=== PATIENT | female | born 1935 | race Caucasian/White ===

== ENCOUNTER 2023-05-24 07:49 | Outpatient (CLI) | payer OTHER | END 2023-05-24 07:50 | disposition home or self-care (01) | LOC: ULT 07:49 | PROVIDERS: ATTEND Family Medicine | DX: N32.81 Overactive bladder (principal); K76.0 Fatty (change of) liver, not elsewhere classified | CPT/HCPCS: 76700; 76856 ==

== ENCOUNTER 2023-12-01 19:02 | Inpatient (IN) | payer MEDICARE ==
[2023-12-01] MEDS ORDERED: Acetaminophen 325 MG TAB ONE (19:20)
[2023-12-01] MEDS ORDERED: Ondansetron ODT 4 MG TAB ONE (19:48)
[2023-12-01] MEDS ORDERED: Ondansetron PF 4 MG/2 ML Vial ONE ×2 (20:28→21:57)
[2023-12-01 21:31] LABS: #Eosinphils 0.2 thou/uL (0.0-0.7); #Monocytes 0.8 thou/uL (0.11-0.59); #Neutrophils 10.3 thou/uL (1.40-6.50); %Basophils 0.2 % (0.0-1.0); %Eosinophils 1.7 % (0.0-10.0); %Lymphocytes 8.1 % (21.0-51.0); %Monocytes 6.1 % (0.0-10.0); %Neutrophils 83.3 % (42.0-75.0); Hematocrit 36.5 % (36.0-47.0); Hemoglobin 11.8 g/dL (12.0-16.0); Mean Corpuscular HGB CONC 32.3 g/dL (32.0-36.0); Mean Corpuscular Hemoglobin 31.9 pg (27.0-31.0); Mean Corpuscular Volume 98.6 fl (78.0-98.0); Mean Platelet Volume 10.5 fL (7.4-10.4); Platelet Count 134 10x3/uL (130-400); RBC Distribution Width 14.5 % (11.5-14.5); White Blood Cell (WBC) Count 12.4 10x3/uL (4.8-10.8)
[2023-12-01 21:50] LABS: ALT (SGPT) 22 U/L (8-55); AST (SGOT) 29 U/L (5-34); Albumin 4.3 g/dL (3.4-4.8); Alkaline Phosphatase 82 U/L (40-110); Anion Gap 15 mmol/L (10-20); BUN (Urea Nitrogen) 27 mg/dL (9.8-20.1); Bilirubin, Total 0.5 mg/dL (0.2-1.2); Calc. Creatinine Clearance 0 mL/min (70-130); Calcium 9.4 mg/dL (7.8-10.44); Carbon Dioxide 24 mmol/L (23-31); Chloride 102 mmol/L (98-107); Estimated GFR 39; Globulin 2.8 g/dL (2.4-3.5); Glucose 150 mg/dL (83-110); Potassium 4.4 mmol/L (3.5-5.1); Protein, Total 7.1 g/dL (5.8-8.1); Sodium 137 mmol/L (136-145)
[2023-12-01 21:54] LABS: Troponin I 0.015 ng/mL (< 0.028)
[2023-12-01] MEDS ORDERED: Ketorolac Tromethamine 30 MG (1 mL) VIAL ONE (21:57)
[2023-12-01] MEDS ORDERED: Morphine 2 MG/ML VIAL ONE (21:59)
[2023-12-01] MEDS ORDERED: Senokot S 8.6-50 MG TAB PO PRN (22:15)
[2023-12-01] MEDS ORDERED: Ondansetron PF 4 MG/2 ML Vial IVP PRN (22:19)
[2023-12-01] MEDS ORDERED: Morphine 2 MG/ML VIAL SLOW IVP PRN (23:11)
[2023-12-02 00:20] LABS: Influenza A by NAA Not Detected (NotDetected); Influenza B by NAA Not Detected (NotDetected); SARS-CoV-2 NAA Rapid Test Not Detected (NotDetected)
[2023-12-02] MEDS: QUEtiapine 25 MG TAB PO SCH ×2 (00:27→20:03)
[2023-12-02] MEDS: Simvastatin 10 MG TAB PO SCH ×2 (00:28→20:02)
[2023-12-02] MEDS: Ondansetron PF 4 MG/2 ML Vial IVP SCH (00:38)
[2023-12-02 01:20] VITALS: BMI 13.5
[2023-12-02] MEDS: HYDROcodone/Acetaminophen 10/325 mg Tablet PO PRN (04:24)
[2023-12-02] MEDS: Ondansetron PF 4 MG/2 ML Vial IVP PRN (04:30)
[2023-12-02 05:27] LABS: #Monocytes 0.6 thou/uL (0.11-0.59); #Neutrophils 9.5 thou/uL (1.40-6.50); %Basophils 0.1 % (0.0-1.0); %Eosinophils 0.1 % (0.0-10.0); %Neutrophils 87.4 % (42.0-75.0); Hematocrit 33.1 % (36.0-47.0); Hemoglobin 10.9 g/dL (12.0-16.0); Mean Corpuscular HGB CONC 32.9 g/dL (32.0-36.0); Mean Corpuscular Hemoglobin 32.1 pg (27.0-31.0); Mean Corpuscular Volume 97.4 fl (78.0-98.0); Mean Platelet Volume 10.8 fL (7.4-10.4); RBC Distribution Width 14.5 % (11.5-14.5); White Blood Cell (WBC) Count 10.9 10x3/uL (4.8-10.8)
[2023-12-02 05:58] LABS: Anion Gap 14 mmol/L (10-20); BUN (Urea Nitrogen) 28 mg/dL (9.8-20.1); Calc. Creatinine Clearance 20 mL/min (70-130); Calcium 9.3 mg/dL (7.8-10.44); Carbon Dioxide 23 mmol/L (23-31); Chloride 103 mmol/L (98-107); Estimated GFR 43; Glucose 198 mg/dL (83-110); Potassium 4.4 mmol/L (3.5-5.1); Sodium 136 mmol/L (136-145)
[2023-12-02 06:01] LABS: Platelet Count 119 10x3/uL (130-400)
[2023-12-02 07:43] LABS: Bacteria/HPF None Seen HPF (None Seen); Bilirubin Negative (Negative); Blood, Urine Negative (Negative); Clarity Clear (Clear); Glucose, Urine (Dipstick) Normal (Negative); Ketone, Urine Trace mg/dL (Negative); Leukocyte Negative Leu/uL (Negative); Nitrite Negative (Negative); Protein, Urine (Dipstick) 50 mg/dL (Neg-Trace); Specific Gravity, Urine 1.035 (1.002-1.036); Urobilinogen Normal mg/dL (Less than 2); pH, Urine 5.5 (5.0-9.0)
[2023-12-02] MEDS: Aspirin 81 mg Enteric Coated Tablet PO SCH (08:50)
[2023-12-02] MEDS: Furosemide 40 MG TAB PO SCH (08:50)
[2023-12-02] MEDS: Calcium Carbonate 500 MG ChewTAB PO SCH (08:50)
[2023-12-02] MEDS: FLU VACC QS2023(65UP)/MF59C/PF 60 MCG/0.5 ML SYRINGE IM ONE (08:51)
[2023-12-02] MEDS: Furosemide 40 MG (4 mL) VIAL SLOW IVP SCH ×2 (09:09→16:39)
[2023-12-02] MEDS: Ipratropium/Albuterol 3 ML NEB NEB SCH (10:52)
[2023-12-02] MEDS: Ipratropium/Albuterol 3 ML NEB NEB PRN (20:11)
[2023-12-03 06:05] LABS: Hematocrit 33.6 % (36.0-47.0); Hemoglobin 11.2 g/dL (12.0-16.0); Manual Diff?? YES; Mean Corpuscular HGB CONC 33.3 g/dL (32.0-36.0); Mean Corpuscular Hemoglobin 32.5 pg (27.0-31.0); Mean Corpuscular Volume 97.4 fl (78.0-98.0); Mean Platelet Volume 11.6 fL (7.4-10.4); Platelet Count 115 10x3/uL (130-400); Red Blood Cell (RBC) Count 3.45 mill/uL (4.20-5.40); White Blood Cell (WBC) Count 17.9 10x3/uL (4.8-10.8)
[2023-12-03 06:07] LABS: Delete Auto Diff?? YES
[2023-12-03 06:35] LABS: Band 18 % (5-11); CellaVision Operator ID lab.abc; Lymphocytes 11 % (21-51); Monocytes 9 % (0-10); Neutrophil 62 % (42-75); Platelet Adequacy Comment Platelets Decreased; RBC Morphology Within Normal Limits; Smudge Cells 14.9 %; Total Cell Count 101
[2023-12-03 06:45] LABS: Anion Gap 16 mmol/L (10-20); BUN (Urea Nitrogen) 36 mg/dL (9.8-20.1); CRP (Inflammatory) 13.47 mg/dL (= or < 0.5); Calc. Creatinine Clearance 17 mL/min (70-130); Calcium 9.5 mg/dL (7.8-10.44); Carbon Dioxide 26 mmol/L (23-31); Chloride 102 mmol/L (98-107); Estimated GFR 34; Glucose 181 mg/dL (83-110); Magnesium 1.7 mg/dL (1.6-2.6); Potassium 4.1 mmol/L (3.5-5.1); Sodium 140 mmol/L (136-145)
[2023-12-03] MEDS: Piperacillin/Tazobactam 3.375 GM in Sodium Chloride 0.9% 100 ML IVPB SCH ×2 (09:10→12:35)
[2023-12-03] MEDS: Furosemide 40 MG (4 mL) VIAL SLOW IVP SCH (09:17)
[2023-12-04 06:05] LABS: #Monocytes 1.1 thou/uL (0.11-0.59); #Neutrophils 11.4 thou/uL (1.40-6.50); %Basophils 0.1 % (0.0-1.0); %Eosinophils 0.1 % (0.0-10.0); %Lymphocytes 7.2 % (21.0-51.0); %Monocytes 7.8 % (0.0-10.0); %Neutrophils 83.9 % (42.0-75.0); Hematocrit 31.9 % (36.0-47.0); Hemoglobin 10.6 g/dL (12.0-16.0); Mean Corpuscular HGB CONC 33.2 g/dL (32.0-36.0); Mean Corpuscular Hemoglobin 32.2 pg (27.0-31.0); Mean Platelet Volume 12.3 fL (7.4-10.4); RBC Distribution Width 15.2 % (11.5-14.5); Red Blood Cell (RBC) Count 3.29 mill/uL (4.20-5.40); White Blood Cell (WBC) Count 13.5 10x3/uL (4.8-10.8)
[2023-12-04 06:13] LABS: Platelet Count 112 10x3/uL (130-400)
[2023-12-04 06:33] LABS: Anion Gap 18 mmol/L (10-20); BUN (Urea Nitrogen) 37 mg/dL (9.8-20.1); Calc. Creatinine Clearance 22 mL/min (70-130); Calcium 9.3 mg/dL (7.8-10.44); Carbon Dioxide 25 mmol/L (23-31); Chloride 104 mmol/L (98-107); Estimated GFR 49; Glucose 150 mg/dL (83-110); Potassium 3.5 mmol/L (3.5-5.1); Sodium 143 mmol/L (136-145)
[2023-12-04] MEDS: D5W-AA 4.25% with LYTES 1,000 ML IV SCH (17:25)
[2023-12-04 21:06] LABS: Actual Bicarbonate (HCO3a) 29.4 mEq/L (22-28); Base Excess (BEa) 5.2 mEq/L (-2.0 to +3.0); CO2 Tension 41.6 mmHg (35.0-45.0); Calcium, Ionized (arterial) 1.14 mmol/L (1.12-1.30); Carboxyhemoglobin (COHb) 0.6 gm% (0.0-3.0); Hematocrit-ABG 34 % (36.0-47.0); Hemoglobin (Hb) 11.7 g/dL (12.0-16.0); O2 Tension (PaO2), arterial 279.8 mmHg (> 60.0); Potassium - ABG Lab 3.34 mmol/L (3.70-5.30); pH, Arterial 7.467 (7.35-7.45)
[2023-12-04 21:09] LABS: Puncture Site LBA
[2023-12-04] MEDS: Furosemide 40 MG (4 mL) VIAL SLOW IVP SCH (22:15)
[2023-12-05 04:22] LABS: #Monocytes 1.2 thou/uL (0.11-0.59); #Neutrophils 13.7 thou/uL (1.40-6.50); %Basophils 0.1 % (0.0-1.0); %Eosinophils 0.1 % (0.0-10.0); %Monocytes 7.3 % (0.0-10.0); %Neutrophils 82.7 % (42.0-75.0); Hematocrit 35.8 % (36.0-47.0); Hemoglobin 11.5 g/dL (12.0-16.0); Mean Corpuscular HGB CONC 32.1 g/dL (32.0-36.0); Mean Corpuscular Hemoglobin 31.3 pg (27.0-31.0); Mean Corpuscular Volume 97.5 fl (78.0-98.0); Mean Platelet Volume 11.8 fL (7.4-10.4); Platelet Count 132 10x3/uL (130-400); RBC Distribution Width 14.8 % (11.5-14.5); Red Blood Cell (RBC) Count 3.67 mill/uL (4.20-5.40); White Blood Cell (WBC) Count 16.6 10x3/uL (4.8-10.8)
[2023-12-05 05:18] LABS: Anion Gap 19 mmol/L (10-20); BUN (Urea Nitrogen) 36 mg/dL (9.8-20.1); Calc. Creatinine Clearance 22 mL/min (70-130); Carbon Dioxide 25 mmol/L (23-31); Chloride 104 mmol/L (98-107); Estimated GFR 49; Glucose 149 mg/dL (83-110); Potassium 3.6 mmol/L (3.5-5.1); Sodium 144 mmol/L (136-145)
[2023-12-05] MEDS ORDERED: Furosemide 40 MG (4 mL) VIAL SLOW IVP SCH (09:00)
[2023-12-05] MEDS: Albumin 25% 25 GM (100 mL) BOT IVPB SCH (12:12)
[2023-12-05] MEDS: Furosemide 100 MG (10 mL) VIAL FS SCH (13:23)
[2023-12-06] MEDS ORDERED: Vancomycin Dose by Levels Sliding Scale (Wt <71) FS SCH (07:45)
[2023-12-06] MEDS ORDERED: Vancomycin 1 GM in Premix 1 BAG IVPB SCH (09:00)
[2023-12-06] MEDS: Vancomycin 1 GM in Premix 1 BAG IVPB SCH (10:21)
[2023-12-06] MEDS: Furosemide 40 MG (4 mL) VIAL SLOW IVP SCH (14:29)
[2023-12-07] MEDS: Ipratropium/Albuterol 3 ML NEB NEB SCH (00:05)
[2023-12-07] MEDS: Furosemide 20 MG (2 mL) VIAL SLOW IVP SCH (01:20)
[2023-12-07 03:45] LABS: #Eosinphils 0.2 thou/uL (0.0-0.7); #Monocytes 1.5 thou/uL (0.11-0.59); #Neutrophils 10.6 thou/uL (1.40-6.50); %Basophils 0.3 % (0.0-1.0); %Eosinophils 1.1 % (0.0-10.0); %Lymphocytes 11.5 % (21.0-51.0); %Monocytes 10.4 % (0.0-10.0); %Neutrophils 75.5 % (42.0-75.0); Hematocrit 35.6 % (36.0-47.0); Hemoglobin 11.5 g/dL (12.0-16.0); Mean Corpuscular HGB CONC 32.3 g/dL (32.0-36.0); Mean Corpuscular Hemoglobin 32.2 pg (27.0-31.0); Mean Corpuscular Volume 99.7 fl (78.0-98.0); Mean Platelet Volume 11.5 fL (7.4-10.4); Platelet Count 129 10x3/uL (130-400); RBC Distribution Width 15.2 % (11.5-14.5); Red Blood Cell (RBC) Count 3.57 mill/uL (4.20-5.40)
[2023-12-07 04:14] LABS: Anion Gap 18 mmol/L (10-20); BUN (Urea Nitrogen) 34 mg/dL (9.8-20.1); Calc. Creatinine Clearance 25 mL/min (70-130); Calcium 9.5 mg/dL (7.8-10.44); Carbon Dioxide 35 mmol/L (23-31); Chloride 101 mmol/L (98-107); Estimated GFR 55; Glucose 159 mg/dL (83-110); Magnesium 2.1 mg/dL (1.6-2.6)
[2023-12-07 04:21] LABS: Actual Bicarbonate (HCO3v) 35.7 mEq/L (22-28); Base Excess 11.1 mEq/L (-2.0 to +3.0); Calcium, Ionized (venous) 1.09 mmol/L (1.16-1.32); Chloride (VBG) 99 mmol/L (98-106); Hematocrit-VBG 36 % (36.0-47.0); Hemoglobin (Hb) 12.2 g/dL (11.7-16.1); Potassium (VBG) 3.11 mmol/L (3.70-5.30); Sodium 149 mmol/L (133-146); pH (venous) 7.501 (7.32-7.43)
[2023-12-07 04:28] LABS: Critical Call Chemistry NUR.LW8@0427; Sodium 151 mmol/L (136-145)
[2023-12-07] MEDS ORDERED: Electrolyte Replacement Protocol 1 EACH FS SCH (04:45)
[2023-12-07] MEDS: Dextrose 5% in Water 1,000 ML IV SCH (05:19)
[2023-12-07] MEDS: Potassium Chloride 20 MEQ in Premix 1 BAG IVPB SCH (05:19)
[2023-12-07] MEDS: Piperacillin/Tazobactam 3.375 GM in Sodium Chloride 0.9% 100 ML IVPB SCH (09:09)
[2023-12-07] MEDS: guaiFENesin ER 600 MG TAB PO SCH (09:12)
[2023-12-07 09:39] LABS: Vancomycin, Trough 5.8 ug/mL
[2023-12-07] MEDS ORDERED: Vancomycin Dose by Levels Sliding Scale (Wt <71) FS SCH (10:30)
[2023-12-07] MEDS ORDERED: Vancomycin HCl 750 MG in Sodium Chloride 0.9% 250 ML 250 ML IVPB SCH (11:00)
[2023-12-07] MEDS ORDERED: Morphine 2 MG/ML VIAL SLOW IVP PRN (11:07)
[2023-12-07] MEDS: Vancomycin HCl 750 MG in Sodium Chloride 0.9% 250 ML 250 ML IVPB SCH (11:20)
[2023-12-07 11:25] LABS: Anion Gap 15 mmol/L (10-20); BUN (Urea Nitrogen) 33 mg/dL (9.8-20.1); Calc. Creatinine Clearance 28 mL/min (70-130); Calcium 9.8 mg/dL (7.8-10.44); Carbon Dioxide 33 mmol/L (23-31); Chloride 102 mmol/L (98-107); Estimated GFR 63; Glucose 123 mg/dL (83-110); Potassium 3.7 mmol/L (3.5-5.1); Sodium 146 mmol/L (136-145)
[2023-12-07] MEDS: Scopolamine 1 mg/72 hour Patch TD SCH (11:25)
[2023-12-08 04:05] LABS: #Eosinphils 0.2 thou/uL (0.0-0.7); #Monocytes 1.6 thou/uL (0.11-0.59); #Neutrophils 10.1 thou/uL (1.40-6.50); %Basophils 0.3 % (0.0-1.0); %Eosinophils 1.7 % (0.0-10.0); %Lymphocytes 10.3 % (21.0-51.0); %Neutrophils 74.2 % (42.0-75.0); Hematocrit 36.3 % (36.0-47.0); Hemoglobin 11.4 g/dL (12.0-16.0); Mean Corpuscular HGB CONC 31.4 g/dL (32.0-36.0); Mean Corpuscular Hemoglobin 31.1 pg (27.0-31.0); Mean Corpuscular Volume 99.2 fl (78.0-98.0); Mean Platelet Volume 12.1 fL (7.4-10.4); Platelet Count 134 10x3/uL (130-400); RBC Distribution Width 15.6 % (11.5-14.5); Red Blood Cell (RBC) Count 3.66 mill/uL (4.20-5.40); White Blood Cell (WBC) Count 13.6 10x3/uL (4.8-10.8)
[2023-12-08 04:33] LABS: Anion Gap 16 mmol/L (10-20); BUN (Urea Nitrogen) 38 mg/dL (9.8-20.1); Calc. Creatinine Clearance 25 mL/min (70-130); Calcium 9.7 mg/dL (7.8-10.44); Carbon Dioxide 34 mmol/L (23-31); Chloride 99 mmol/L (98-107); Estimated GFR 57; Glucose 164 mg/dL (83-110); Potassium 3.6 mmol/L (3.5-5.1); Sodium 145 mmol/L (136-145)
[2023-12-08] MEDS: Aspirin Chewable 81 MG TAB PER TUBE SCH (11:36)
[2023-12-08 12:10] LABS: Vancomycin, Random 6.9 ug/mL (See Comment)
[2023-12-08] MEDS: Acetaminophen 325 MG TAB PO PRN (15:42)
[2023-12-08 15:50] VITALS: TEMP 100.5
[2023-12-08 16:30] VITALS: BP 139/57
[2023-12-09] MEDS ORDERED: Aspirin Chewable 81 MG TAB PER TUBE SCH (09:00)
== END 2023-12-08 16:33 | disposition hospice, home (50) | DRG 551 ==
LOC: ERS 19:02 → SURG A 22:27 → INTOOBSV 22:27 → OBSVTOIN 12-02 12:54
PROVIDERS: ADMIT Student in an Organized Health Care Education/Training Program; ATTEND Family Medicine
PROC: 4A033R1 Measurement of Arterial Saturation, Peripheral, Percutaneous Approach (ICD-10-PCS; principal; 2023-12-02)
PROC: 30233J1 Transfusion of Nonautologous Serum Albumin into Peripheral Vein, Percutaneous Approach (ICD-10-PCS; 2023-12-02)
DX: S22.069A Unspecified fracture of T7-T8 vertebra, initial encounter for closed fracture (principal); G93.41 Metabolic encephalopathy; J69.0 Pneumonitis due to inhalation of food and vomit; I50.33 Acute on chronic diastolic (congestive) heart failure; J96.21 Acute and chronic respiratory failure with hypoxia; Z51.5 Encounter for palliative care; E44.0 Moderate protein-calorie malnutrition; N17.9 Acute kidney failure, unspecified; E87.1 Hypo-osmolality and hyponatremia; Z68.1 Body mass index [BMI] 19.9 or less, adult; F03.90 Unspecified dementia, unspecified severity, without behavioral disturbance, psychotic disturbance, mood disturbance, and anxiety; D72.829 Elevated white blood cell count, unspecified; I11.0 Hypertensive heart disease with heart failure; Z96.643 Presence of artificial hip joint, bilateral; Z66 Do not resuscitate; Z88.8 Allergy status to other drugs, medicaments and biological substances; Z85.3 Personal history of malignant neoplasm of breast; Z90.49 Acquired absence of other specified parts of digestive tract; Z90.710 Acquired absence of both cervix and uterus; Z98.890 Other specified postprocedural states; Z95.2 Presence of prosthetic heart valve
CPT/HCPCS: 36415; 36600; 70450; 71045; 72125; 72128; 72131; 74018; 74176; 80048; 80053; 80202; 81001; 82805; 83605; 83735; 83880; 84484; 85025; 86140; 93306; 94640; 96361; 96374; 96375; 96376; J1885; J1940; J2272; J2405; J2543; J3370; J3370-JW; J3480; J3490; J7050; J7070; J7620; P9047; Q0162